=== PATIENT | female | born 1935 | race Caucasian/White ===

== ENCOUNTER → 2016-09-07 | Outpatient (CLI) | payer OTHER ==
[~2016-09-07] MED LIST: ALEVE220 M1 PO; ASPIRIN325 PO; ASPIRIN81 M2 PO; CALCIUM 600 +1 EAC1 PO; CLONAZEPAM 1 MG1 M1 PO; DIOVAN160 MG PO; FISH OIL 1,0001 EAC5 PO; PLAVIX 75 MG TA75 M1 PO; POTASSIUM99 M1 PO; PRILOSEC 20 MG20 MG PO; RESTASIS1 EACH OP; TOPROL XL25 MG PO; ZOCOR 10 MG TAB10 MG PO; ZOLOFT 50 MG TA50 M1 PO
--- NOTE | ~2016-09-07 | 2DMMODE ---
[facility] [place] [address] 2 D/M-MODE ECHOCARDIOGRAM Name: CLAUDIA CONTI Room #: REG CL [facility]#: [id number] Admission: 09/07/16 Attend Phys: Sinan Purcell MD Discharge: Date of : 33 Date of Service: 09/07/16 1057 Report #: [id number] THIS REPORT FOR: //name// Transthoracic Echocardiography Ordering physician: Sinan Purcell MD Referring physician: MD Michelle Covarrubias Donald Station Agent: Cookie Navarro Indications/History: CAD, stent, HTN, HLP BP: 147 / HR: 79bpm Height: 63in Weight: 159.7lb 87 Study data: M-mode, complete 2D, complete spectral Doppler, and color Doppler. Location: Echo laboratory. Routine. Image quality was adequate. 2D measurements Normal Normal LVID ED 44.9mm 36-57 IVS ED 12.9mm 6-11 LVID ES 27.4mm 23-40 LVPW ED 8.5mm 6-11 LA volume 28ml/m2 16-28 AoRoot diam 30.1mm 21-37 index ED LVOT diameter 19mm 18-23 Findings: Left ventricle: The cavity size was normal. Systolic function was normal. The estimated ejection fraction was in the range of 55% to 60%. Wall motion was normal. Right ventricle: The cavity size was normal. Systolic function was normal. Right atrium: The atrium was normal in size. Left atrium: The atrium was normal in size. Volume index: 28ml/m2 (S). Aortic valve: Mildly thickened leaflets. Doppler: There was no stenosis. Trivial regurgitation. Peak velocity: 151.6cm/s (S). Mitral valve: Structurally normal valve. Doppler: [facility] [address] [place] [address] 2 D/M-MODE ECHOCARDIOGRAM Name: CLAUDIA CONTI Room #: SARAH Nicole#: [id number] Admission: 09/07/16 Attend Phys: Sinan Purcell MD Discharge: Date of : 33 Date of Service: 09/07/16 1057 Report #: [id number] There was no evidence for stenosis. Trivial regurgitation. Peak E-wave velocity: 61cm/s. Peak A-wave velocity: 98.8cm/s. Tricuspid valve: Structurally normal valve. Doppler: There was no evidence for stenosis. Trivial regurgitation. Regurgitant peak velocity: 221.1cm/s. Peak RV-RA gradient: 20mm Hg (S). Pulmonic valve: Structurally normal valve. Doppler: There was no evidence for stenosis. Trivial regurgitation. Pericardium: There was no pericardial effusion. Aorta: Aortic root: The aortic root was normal in size. Pulmonary artery: Systolic pressure was estimated to be 25mm Hg. Diastolic function: Doppler parameters are consistent with abnormal left ventricular relaxation (grade 1 diastolic dysfunction). Systemic veins: Inferior vena cava: The vessel was normal in size; the respirophasic diameter changes were in the normal range (= 50%). Conclusions 1. Left ventricle: Systolic function was normal. The estimated ejection fraction was in the range of 55% to 60%. 2. Right atrium: The atrium was normal in size. 3. Left atrium: The atrium was normal in size. 4. Aortic valve: Trivial regurgitation. 5. Mitral valve: Trivial regurgitation. 6. Tricuspid valve: Trivial regurgitation. 7. Pericardium, extracardiac: There was no pericardial effusion. <ELECTRONICALLY SIGNED> By: Sinan Purcell MD 09/07/16 1142 1057 1142 Sinan Purcell MD /roddy
== END ==
LOC: CV 10:33
DX: I25.10 Atherosclerotic heart disease of native coronary artery without angina pectoris (principal); I10 Essential (primary) hypertension; E78.5 Hyperlipidemia, unspecified

== ENCOUNTER → 2017-03-15 | Outpatient (CLI) | payer OTHER | LOC: NUC 07:40 | DX: I25.10 Atherosclerotic heart disease of native coronary artery without angina pectoris (principal) ==

== ENCOUNTER → 2019-05-05 | Outpatient (CLI) | payer OTHER ==
--- NOTE | 2019-05-05 14:03 | 2DMMODE ---
[facility] [place] [address] 2 D/M-MODE ECHOCARDIOGRAM Name: CLAUDIA CONTI Room #: REG [facility]#: [id number] Admission: 05/05/19 Attend Phys: Sinan Purcell MD Discharge: Date of : 33 Report #: [id number] THIS REPORT FOR: //name// APPROVED REPORT Study performed: 05/05/2019 13:14:27 EXAM: Comprehensive 2D, Doppler, and color-flow Echocardiogram Patient Location: Echo lab Status: routine BSA: 1.80 HR: 77 bpm BP: 120/65 mmHg Rhythm: NSR Other Information Study Quality: Adequate Indications CAD Hypertension/HDD 2D Dimensions RVDd: 32.26 mm IVSd: 14.25 (7-11mm) LVOT Diam: 20.92 (18-24mm) LVDd: 37.08 mm PWd: 10.78 (7-11mm) Ascending Ao: 31.01 (22-36mm) LVDs: 26.43 (25-40mm) Aortic Root: 28.20 mm IVC: 10.00 mm Volumes Left Atrial Volume (Systole) Single Plane 4CH: 60.76 mL Single Plane 2CH: 24.32 mL LA ESV Index: 23.00 mL/m2 Aortic Valve AoV Peak Sylvester.: 1.54 m/s AO Peak Gr.: 9.46 mmHg LVOT Max P.28 mmHg LVOT Max V: 1.03 m/s GREG Vmax: 2.31 cm2 Mitral Valve E/A Ratio: 0.7 MV Decel. Time: 193.20 ms [facility] [address] [place] [address] 2 D/M-MODE ECHOCARDIOGRAM Name: CLAUDIA CONTI Room #: REG CL [facility]#: [id number] Admission: 05/05/19 Attend Phys: Sinan Purcell MD Discharge: Date of : 33 Report #: [id number] E Max Sylvester.: 0.79 m/s MV A Sylvester.: 1.19 m/s MV PHT: 56.03 ms IVRT: 141.87 ms Pulmonary Valve PV Peak Sylvester.: 1.22 m/s PV Peak Gr.: 5.92 mmHg Pulmonary Vein P Vein S: 0.44 m/s P Vein A: 0.24 m/s P Vein D: 0.62 m/s P Vein A Dur.: 107.3 msec P Vein S/D Ratio: 0.71 Tricuspid Valve RAP Estimate: 5.00 mmHg Left Ventricle The left ventricle is normal size. Mild concentric left ventricular hypertrophy. The left ventricular systolic function is normal. The left ventricular ejection fraction is within the normal range. LVEF is 55-60%. Mild diastolic dysfunction is present (impaired relaxation pattern). Right Ventricle The right ventricle is normal size. The right ventricular systolic function is normal. Atria The left atrium size is normal. The right atrium size is normal. Aortic Valve Aortic valve leaflets are mildly thickened. Trace aortic regurgitation. There is no aortic valvular stenosis. Mitral Valve The mitral valve is normal in structure. Mild mitral regurgitation. No evidence of mitral valve stenosis. Tricuspid Valve The tricuspid valve is normal in structure. Trace tricuspid regurgitation. Unable to assess PA pressure. Pulmonic Valve The pulmonary valve is normal in structure. Trace pulmonic regurgitation. [facility] [address] [place] [address] 2 D/M-MODE ECHOCARDIOGRAM Name: CLAUDIA OCNTI XUAN Room #: REG [facility]#: [id number] Admission: 05/05/19 Attend Phys: Sinan Purcell MD Discharge: Date of : 33 Report #: [id number] Great Vessels The aortic root is normal in size. IVC is normal in size and collapses >50% with inspiration. Pericardium There is no pericardial effusion. <Conclusion> The left ventricle is normal size. Mild concentric left ventricular hypertrophy. The left ventricular systolic function is normal. Mild diastolic dysfunction is present (impaired relaxation pattern). The right ventricle is normal size. The left atrium size is normal. Trace aortic regurgitation. Mild mitral regurgitation. Trace tricuspid regurgitation. <ELECTRONICALLY SIGNED> By: Sinan Purcell MD 05/05/19 1403 1403 1403 Sinan Purcell MD /KERRI
== END ==
LOC: CV 13:02
DX: I34.0 Nonrheumatic mitral (valve) insufficiency (principal); I25.10 Atherosclerotic heart disease of native coronary artery without angina pectoris; I11.9 Hypertensive heart disease without heart failure; Z88.0 Allergy status to penicillin; Z88.8 Allergy status to other drugs, medicaments and biological substances; Z88.2 Allergy status to sulfonamides

== ENCOUNTER → 2020-01-14 | Outpatient (CLI) | payer OTHER | LOC: SJCVCIMAG 09:14 | PROVIDERS: ATTEND Internal Medicine Cardiovascular Disease | DX: I44.7 Left bundle-branch block, unspecified (principal); R00.0 Tachycardia, unspecified; I49.3 Ventricular premature depolarization; I73.9 Peripheral vascular disease, unspecified; I25.10 Atherosclerotic heart disease of native coronary artery without angina pectoris; I10 Essential (primary) hypertension; K21.9 Gastro-esophageal reflux disease without esophagitis; E78.00 Pure hypercholesterolemia, unspecified; L98.9 Disorder of the skin and subcutaneous tissue, unspecified; Z90.710 Acquired absence of both cervix and uterus; Z79.899 Other long term (current) drug therapy ==

== ENCOUNTER → 2020-05-17 | Outpatient (CLI) | payer OTHER | LOC: SJCVC 13:23 | PROVIDERS: ATTEND Internal Medicine Cardiovascular Disease | DX: R94.31 Abnormal electrocardiogram [ECG] [EKG] (principal); R53.83 Other fatigue; I25.10 Atherosclerotic heart disease of native coronary artery without angina pectoris; I10 Essential (primary) hypertension; K21.9 Gastro-esophageal reflux disease without esophagitis; E78.00 Pure hypercholesterolemia, unspecified; Z79.82 Long term (current) use of aspirin; Z79.899 Other long term (current) drug therapy; Z82.49 Family history of ischemic heart disease and other diseases of the circulatory system ==

== ENCOUNTER → 2020-08-09 | Outpatient (CLI) | payer OTHER | LOC: SJCVC 10:50 | PROVIDERS: ATTEND Internal Medicine Cardiovascular Disease | DX: I25.10 Atherosclerotic heart disease of native coronary artery without angina pectoris (principal); R94.31 Abnormal electrocardiogram [ECG] [EKG]; I45.4 Nonspecific intraventricular block; I10 Essential (primary) hypertension; E78.00 Pure hypercholesterolemia, unspecified; R60.9 Edema, unspecified; E78.5 Hyperlipidemia, unspecified; Z88.9 Allergy status to unspecified drugs, medicaments and biological substances; Z79.82 Long term (current) use of aspirin; Z79.899 Other long term (current) drug therapy ==

== ENCOUNTER → 2020-09-22 | Outpatient (CLI) | payer OTHER | LOC: SJCVCIMAG 07:52 | PROVIDERS: ATTEND Nuclear Medicine Nuclear Cardiology | DX: M79.89 Other specified soft tissue disorders (principal); I25.10 Atherosclerotic heart disease of native coronary artery without angina pectoris; I10 Essential (primary) hypertension; E78.00 Pure hypercholesterolemia, unspecified; R60.0 Localized edema; K21.9 Gastro-esophageal reflux disease without esophagitis; G62.9 Polyneuropathy, unspecified; Z79.82 Long term (current) use of aspirin; Z79.899 Other long term (current) drug therapy; Z72.89 Other problems related to lifestyle; Z88.1 Allergy status to other antibiotic agents; Z88.8 Allergy status to other drugs, medicaments and biological substances; Z88.2 Allergy status to sulfonamides ==

== ENCOUNTER → 2021-01-21 | Outpatient (CLI) | payer OTHER | LOC: SJCVCIMAG 09:35 | PROVIDERS: ATTEND Internal Medicine Cardiovascular Disease | DX: I08.3 Combined rheumatic disorders of mitral, aortic and tricuspid valves (principal); R94.31 Abnormal electrocardiogram [ECG] [EKG]; I44.7 Left bundle-branch block, unspecified; I10 Essential (primary) hypertension; I25.10 Atherosclerotic heart disease of native coronary artery without angina pectoris; E78.00 Pure hypercholesterolemia, unspecified; R60.9 Edema, unspecified; M19.90 Unspecified osteoarthritis, unspecified site; K21.9 Gastro-esophageal reflux disease without esophagitis; Z90.710 Acquired absence of both cervix and uterus; Z98.61 Coronary angioplasty status; Z88.8 Allergy status to other drugs, medicaments and biological substances; Z79.899 Other long term (current) drug therapy; Z82.49 Family history of ischemic heart disease and other diseases of the circulatory system ==

== ENCOUNTER → 2021-07-14 | Outpatient (CLI) | payer OTHER | LOC: SJCVC 14:17 | PROVIDERS: ATTEND Internal Medicine Cardiovascular Disease | DX: R94.31 Abnormal electrocardiogram [ECG] [EKG] (principal); I45.4 Nonspecific intraventricular block; I10 Essential (primary) hypertension; I25.10 Atherosclerotic heart disease of native coronary artery without angina pectoris; E78.00 Pure hypercholesterolemia, unspecified; R60.9 Edema, unspecified; K21.9 Gastro-esophageal reflux disease without esophagitis; Z88.2 Allergy status to sulfonamides; Z88.1 Allergy status to other antibiotic agents; Z88.8 Allergy status to other drugs, medicaments and biological substances; Z79.82 Long term (current) use of aspirin; Z79.899 Other long term (current) drug therapy; Z72.89 Other problems related to lifestyle; Z82.49 Family history of ischemic heart disease and other diseases of the circulatory system ==